=== PATIENT | female | born 1995 | race Caucasian/White ===

== ENCOUNTER 2020-07-23 09:45 | Outpatient (REF) | payer OTHER, SELFPAY ==
[2020-07-23 10:06] LABS: COVID-19 Test Negative (Negative); IDNOW Serial# 55D5AD1C
== END 2020-07-23 09:46 | disposition home or self-care (01) ==
LOC: HO.EMPCOV 09:45
PROVIDERS: Visit Provider Internal Medicine
DX: Z20.822 Contact with and (suspected) exposure to COVID-19 (principal)
CPT/HCPCS: 36415; 87635; C9803

== ENCOUNTER → 2022-03-31 09:16 | Outpatient (RCR) | payer OTHER, SELFPAY ==
[2020-04-23 07:59] LABS: COVID-19 Test Negative (Negative)
[2020-04-29 14:43] LABS: COVID-19 Test Negative (Negative)
[2020-05-06 15:15] LABS: COVID-19 Test Negative (Negative); IDNOW Serial# 55D5AD1C
[2020-05-31 13:58] LABS: SARS-COV-2 PCR UMBRL NOT DETECTED
[2020-06-09 09:42] LABS: SARS-COV-2 PCR UMBRL Not Detected
[2020-06-16 12:44] LABS: SARS-COV-2 PCR UMBRL Not Detected
[2020-06-19 09:24] LABS: SARS-COV-2 PCR UMBRL Not Detected
[2020-06-29 09:56] LABS: SARS-COV-2 PCR UMBRL NEGATIVE
[2020-07-04 11:08] LABS: SARS-COV-2 PCR UMBRL NEGATIVE
== END | disposition home or self-care (01) ==
LOC: HO.EMPCOV 04-23 07:32
PROVIDERS: Visit Provider Internal Medicine
DX: Z20.828 Contact with and (suspected) exposure to other viral communicable diseases (principal)
CPT/HCPCS: 36415; 87635; C9803; U0003